=== PATIENT | male | born 1955 | race Caucasian/White ===

== ENCOUNTER 2024-11-12 09:57 | Outpatient (CLI) | payer MEDICARE, MEDICAID ==
[~2024-11-12] VITALS: Ht 185.4 cm; Wt 104.3 kg
[2024-11-12 10:47] VITALS: PULSE 83; RESP 14; O2SAT 97
[2024-11-12] MEDS: albuterol 2.5 MG/3 ML nebule NEB ONE (10:53)
[2024-11-12 11:00] VITALS: PULSE 97; RESP 15
== END 2024-11-12 23:59 | disposition home or self-care (01) ==
LOC: RT 09:57
PROVIDERS: ATTEND Family Medicine
DX: J44.9 Chronic obstructive pulmonary disease, unspecified (principal); J98.8 Other specified respiratory disorders
CPT/HCPCS: 94060; 94729; 94760

== ENCOUNTER 2024-11-25 08:20 | Outpatient (CLI) | payer MEDICARE, MEDICAID ==
--- NOTE | 2024-11-25 12:58 | RADIOLOGY REPORT ---
Procedure: CT CT CHEST LOW DOSE Reason for study/Clinical History: LUNG CANCER SCREENING Comparison Study: None available at time of dictation. TECHNIQUE: Multidetector CT of the chest was performed from the lung apices to the upper abdomen with out the use of intravenous contract. Axial, coronal and sagittal multiplanar reformats were performed . Radiation Dose Information: CT Dose: CTDI volume is 3.7 mGy. Dose-length product is 151.5 mGy*cm The dose indicators for CT are the volume Computed Tomography (CT) Dose Index (CTDIvol) and the Dose Length Product (DLP), and are measured in units of mGy and mGy-cm, respectively. These indicators are not patient dose, but values generated from the CT scanner acquisition factors. The report includes radiation exposure data for exposures received during this examination. FINDINGS: Lower neck: Normal thyroid. Lungs: No focal consolidation. No suspicious pulmonary nodule. [id number] centrilobular emphyse ma. Heart/Vascular Structures: Normal heart size. No pericardial effusion. Lymph Nodes: No adenopathy Pleura: No pleural effusion or significant pneumothorax. Musculoskeletal: No acute osseous abnormality. Degenerative changes of the spine. Soft tissues: Normal. Upper abdomen: Limited portions of the upper abdomen are unremarkable. IMPRESSION: No acute intrathoracic abnormality. LUNG RADS Category 1: Continue annual screening with LDCT
--- NOTE | 2024-11-25 13:44 | VASCULAR REPORT ---
EXAM: VASC VL AORTA/ILIAC/GRAFT; HISTORY: Evaluate for abdominal aorta aneurysm. COMPARISON: None TECHNIQUE: Grayscale and Doppler imaging of the abdominal aorta and iliac arteries. FINDINGS: AORTA: The proximal aorta measures 2.1 cm in caliber. Mid aorta measures 2.1 cm in caliber. Distal a mike measures 3.9 x 3.6 cm. No significant atherosclerotic disease. No signs of dissection. Peak sys tolic velocity measure up to 82.1 cm/sec. ILIAC ARTERIES: The visualized portions are normal in caliber. OTHER: None. IMPRESSION: 1. Distal abdominal aorta aneurysm with maximal diameter of 3.9 cm. Recommend follow-up by ultrasound or CT angiogram in 12 months. AAA size (cm) Recommended Follow-Up 26 cm to 2.9 cm Every 5 years 30 cm to 3.4 cm Every 3 years 35 cm to 3.9 cm Every 12 months 40 cm to 4.4 cm Every 12 months, Recommend vascular consultation 45 cm to 5.4 cm Every 6 months, Recommend vascular consultation 55 cm Referral to vascular surgeon
== END 2024-11-25 23:59 | disposition home or self-care (01) ==
LOC: RAD 08:20
PROVIDERS: ATTEND Family Medicine
DX: Z12.2 Encounter for screening for malignant neoplasm of respiratory organs (principal); I71.40 Abdominal aortic aneurysm, without rupture, unspecified; F17.210 Nicotine dependence, cigarettes, uncomplicated; M47.816 Spondylosis without myelopathy or radiculopathy, lumbar region; J43.2 Centrilobular emphysema
CPT/HCPCS: 71271; 93978